=== PATIENT | male | born 1935 | race Caucasian/White ===

== ENCOUNTER 2017-06-28 21:22 | Inpatient (IN) | payer MEDICARE ==
[2017-06-28 21:29] VITALS: BMI 25.7
[2017-06-28] MEDS ORDERED: Albuterol HFA 90 mcg/actuation (8 g) IH PRN (21:57)
[2017-06-28] MEDS: Insulin Lispro (humaLOG) 100 Units/ml Inj SC SCH (22:53)
[2017-06-29 06:20] LABS: BASO # 0.1 K/uL (0.0-0.2); BASO % 1.2 % (0.0-2.0); EOS # 0.2 K/uL (0.0-0.7); EOS % 4.8 % (0.0-4.0); HEMOGLOBIN 12.6 g/dL (12.0-18.0); LYMPH # 1.2 K/uL (1.0-4.3); LYMPH % 26.7 % (20.0-40.0); MEAN CELL VOLUME 94.5 fl (80.0-94.0); MEAN CORPUSCULAR HEMOGLOBIN 30.7 pg (27.0-31.0); MEAN CORPUSCULAR HGB CONC 32.5 g/dL (33.0-37.0); MONO # 0.9 K/uL (0.0-0.8); MONO % 20.7 % (0.0-10.0); NEUT # 2.1 K/uL (1.8-7.0); NEUT % 46.6 % (50.0-75.0); PLATELET COUNT 212 K/uL (130-400); RBC 4.11 Mil/uL (4.40-5.90); RED CELL DISTRIBUTION WIDTH 14.5 % (11.5-14.5); WHITE BLOOD COUNT 4.5 K/uL (4.8-10.8)
[2017-06-29 06:33] LABS: ALBUMIN 3.1 g/dL (3.5-5.0); ALT/SGPT 60 U/L (21-72); AST/SGOT 36 U/L (17-59); BLOOD UREA NITROGEN 15 mg/dl (9-20); CALCIUM 8.7 mg/dL (8.4-10.2); GFR AFRICAN-AMERICAN > 60; GFR NON-AFRICAN AMERICAN > 60; HDL CHOLESTEROL 38 MG/DL (30-70)
[2017-06-29 06:37] LABS: ALB/GLOB RATIO 1.1 (1.0-2.1)
[2017-06-29 06:43] LABS: LDL CHOLESTEROL 97 mg/dL (0-129)
[2017-06-29] MEDS: Insulin Lispro (humaLOG) 100 Units/ml Inj SC SCH ×3 (06:50→16:12)
[2017-06-29] MEDS: Fluticasone-Salmeterol 250-50mcg Diskus IH SCH ×2 (08:23→21:47)
--- NOTE | 2017-06-29 12:29 | PSY.TMCNF ---
Nursing - Vital Signs Vital Signs (Last 8 hours): Vital Signs 06/29/17 06/29/17 08:25 10:00 Temperature 98.1 F Pulse Rate 61 61 Respiratory 20 Rate Blood Pressure 111/65 111/65 O2 Sat by Pulse 97 Oximetry Pain: 0 - Medications/Other Issues Comment: to follow as per nutrition protocol - Bladder Management Bladder Pattern: Normal - Bowel Management Bowel Pattern: Normal Nutrition - Current Diet Current Diet/ Supplement/ Feedings: Moderate consistent CHO heart healthy diet - Appetite Percent Meal Consumed: 75-100% - Assessment/Goals/Time Frame Assessment/Goals/Time Frame: to follow as per nutrition protocol - Provider Provider: Elizabeth Diaz RD Case Management - Discharge Plan Discharge Plan: Home with significant other/family Rehabilitation Plan - Treatment Plan Treatment Plan: Physical Therapy, Occupational Therapy, Speech, Dietary, Patient /Family Education - Recommendation Recommendation: Physical Therapy, Occupational Therapy, Speech, Dietary, Patient /Family Education - Discharge Plan Discharge to: Home
[2017-06-29 12:49] LABS: EOSINOPHIL 4 % (0-7); LYMPHOCYTE 26 % (20-50); MONOCYTE 23 % (0-10); NEUTROPHIL 47 % (42-75); PLATELET ESTIMATE NORMAL (NORMAL); TOTAL CELLS COUNTED 100
[2017-06-29 13:01] LABS: OVALOCYTES SLIGHT
--- NOTE | 2017-06-29 13:11 | PCM.OPOC ---
Physiatry Overall Plan of Care - Overall Plan of Care Estimated Length of Stay in Weeks: 2 Rehab Impairment: Mobility, Gait, Cognition, Balance, Coordination Etiologic Diagnosis: Other - Anticipated Interventions Physical Therapy:: Yes Occupational Therapy:: Yes Speech Therapy:: Yes Recreational Therapy:: Yes - Therapy Goals Bed Mobility: Independent Ambulation: Independent Functional Positional Changes:: Independent - Functional Outcomes Functional Outcomes: fair - Discharge Plan Identification of Barriers to Discharge: Home Situation Discharge Destination: Home
--- NOTE | 2017-06-29 13:15 | CP.PCM.CON ---
History of Present Illness - History of Present Illness History of Present Illness: danish is freindly male admitted [facility] with diagnosis of encephalopathy, HTn Dm and copd Review of Systems - EENT Eyes: Blurred Vision, Change in Vision - Musculoskeletal Musculoskeletal: Abnormal Gait, Muscle Weakness - Neurological Neurological: Weakness Past Patient History - Past Medical History & Family History Past Medical History?: Yes - Past Social History Smoking Status: Never Smoked - CARDIAC Hx Hypertension: Yes - PULMONARY Hx Asthma: Yes - NEUROLOGICAL Other/Comment: 06/19/17: Encephalopathy due to hypertensive crisis - HEENT Hx HEENT Problems: Yes (Left eye diminished vision) - ENDOCRINE/METABOLIC Hx Diabetes Mellitus Type 2: Yes - HEMATOLOGICAL/ONCOLOGICAL Hx AIDS: No Hx Human Immunodeficiency Virus (HIV): No - MUSCULOSKELETAL/RHEUMATOLOGICAL Hx Falls: Yes - GENITOURINARY/GYNECOLOGICAL Hx Prostate Problems: Yes (Enlarged prostate) Hx Urinary Tract Infection: Yes - PSYCHIATRIC Hx Substance Use: No - SURGICAL HISTORY Other/Comment: - Surgery to the left hand & middle finger "years" ago - ANESTHESIA Hx Anesthesia: Yes Hx Anesthesia Reactions: No Has any member of the family had a problem w/ anesthesia?: No Meds Allergies/Adverse Reactions: Allergies Allergy/AdvReac Type Severity Reaction Status Date / Time Penicillins Allergy Mild RASH Verified 06/28/17 22:49 - Medications Medications: Current Medications Albuterol (Ventolin Hfa 90 Mcg/Actuation (8 G)) 1 puff IH Q4H PRN PRN Reason: Wheezing Amlodipine Besylate (Norvasc) 10 mg PO DAILY [facility] Last Admin: 06/29/17 08:25 Dose: 10 mg Aspirin (Aspirin Chewable) 81 mg PO DAILY [facility] Last Admin: 06/29/17 08:23 Dose: 81 mg Atorvastatin Calcium (Lipitor) 80 mg PO HS [facility] Last Admin: 06/28/17 22:54 Dose: 80 mg Finasteride (Proscar) 5 mg PO HS [facility] Insulin Human Lispro (Humalog) 0 units SC [facility] PRN Reason: Protocol Last Admin: 06/29/17 11:52 Dose: Not Given Levofloxacin (Levaquin) 750 mg PO DAILY [facility] Last Admin: 06/29/17 08:24 Dose: 750 mg Fluticasone/Salmeterol (Advair Diskus 250/50) 1 puff IH Q12H [facility] Last Admin: 06/29/17 08:23 Dose: 1 puff Tamsulosin HCl (Flomax) 0.4 mg PO HS [facility] Last Admin: 06/29/17 08:24 Dose: Not Given Physical Exam - Head Exam Head Exam: ATRAUMATIC, NORMAL INSPECTION, NORMOCEPHALIC - Eye Exam Eye Exam: EOMI, Normal appearance, PERRL Pupil Exam: NORMAL ACCOMODATION, PERRL Additional comments: problem with vision - ENT Exam ENT Exam: Mucous Membranes Moist, Normal Exam - Neck Exam Neck exam: Positive for: Normal Inspection - Respiratory Exam Respiratory Exam: Clear to Auscultation Bilateral - GI/Abdominal Exam GI & Abdominal Exam: Normal Bowel Sounds - Rectal Exam Rectal Exam: NORMAL INSPECTION - Exam External exam: NORMAL EXTERNAL EXAM - Extremities Exam Extremities exam: Positive for: normal inspection - Back Exam Back exam: NORMAL INSPECTION - Neurological Exam Neurological exam: Alert, CN II-XII Intact, Normal Gait - Psychiatric Exam Psychiatric exam: Normal Affect, Normal Mood - Skin Skin Exam: Dry, Intact Results - Vital Signs Recent Vital Signs: Last Vital Signs Temp 98.1 F 06/29/17 10:00 Pulse 61 06/29/17 10:00 Resp 20 06/29/17 10:00 BP 111/65 06/29/17 10:00 Pulse Ox 97 06/29/17 10:00 - Labs Result Diagrams: 06/29/17 05:20 06/29/17 05:20 Labs: Laboratory Results - last 24 hr 06/28/17 06/29/17 06/29/17 21:54 05:20 05:20 WBC 4.5 L RBC 4.11 L Hgb 12.6 Hct 38.8 MCV 94.5 H MCH 30.7 MCHC 32.5 L RDW 14.5 Plt Count 212 MPV 9.0 Neut % (Auto) 46.6 L Lymph % (Auto) 26.7 [place] % (Auto) 20.7 H Eos % (Auto) 4.8 H Baso % (Auto) 1.2 Neut # 2.1 Lymph # 1.2 [place] # 0.9 H Eos # 0.2 Baso # 0.1 Neutrophils % (Manual) 47 Lymphocytes % (Manual) 26 Monocytes % (Manual) 23 H Eosinophils % (Manual) 4 Platelet Estimate Normal Macrocytosis (manual) Slight Ovalocytes Slight Sodium 142 Potassium 4.1 Chloride 106 Carbon Dioxide 29 Anion Gap 11 BUN 15 Creatinine 1.0 Est GFR ( Amer) > 60 Est GFR (Non-Af Amer) > 60 POC Glucose (mg/dL) 116 H Random Glucose 99 Hemoglobin A1c Calcium 8.7 Total Bilirubin 0.4 AST 36 ALT 60 Alkaline Phosphatase 72 Total Protein 5.9 L Albumin 3.1 L Globulin 2.8 Albumin/Globulin Ratio 1.1 Triglycerides 66 Cholesterol 156 LDL Cholesterol Direct 97 HDL Cholesterol 38 TSH 3rd Generation 6.60 H 06/29/17 06/29/17 06/29/17 05:20 06:13 11:45 WBC RBC Hgb Hct MCV MCH MCHC RDW Plt Count MPV Neut % (Auto) Lymph % (Auto) [place] % (Auto) Eos % (Auto) Baso % (Auto) Neut # Lymph # [place] # Eos # Baso # Neutrophils % (Manual) Lymphocytes % (Manual) Monocytes % (Manual) Eosinophils % (Manual) Platelet Estimate Macrocytosis (manual) Ovalocytes Sodium Potassium Chloride Carbon Dioxide Anion Gap BUN Creatinine Est GFR ( Amer) Est GFR (Non-Af Amer) POC Glucose (mg/dL) 102 103 Random Glucose Hemoglobin A1c 6.3 Calcium Total Bilirubin AST ALT Alkaline Phosphatase Total Protein Albumin Globulin Albumin/Globulin Ratio Triglycerides Cholesterol LDL Cholesterol Direct HDL Cholesterol TSH 3rd Generation Assessment & Plan (1) Encephalopathy Assessment and Plan: HTn DM and Copd plan for physical, occupational, speech and rec therapy monitor vision, coordination and strenggth for overlall plan of care Status: Acute
--- NOTE | 2017-06-29 15:43 | CP.PCM.CON ---
History of Present Illness - History of Present Illness History of Present Illness: 81 yr old male with a past medical history of htn, dm, copd, hyperlipidemia and now presenting with difficulty seeing out of his left eye and encephalopathy. He was in [facility] for several weeks, for stroke workup, but it is unclear if he had a stroke. Then, he was brought here for rehab for a presumed stroke secondary to hypertension, and thought to have hypertensive encephalopathy. His symptoms resolved, and he now is complaining of left field cut, appreciable on exam, and blurriness of vision. He denies headache, vomiting , or any other deficit. PMH/PSH: Htn, Dm, COpd, Hyperlipidemia FHSH: , has several children. No tobacco,no etoh. All: nkda. Past Patient History - Past Medical History & Family History Past Medical History?: Yes - Past Social History Smoking Status: Never Smoked - CARDIAC Hx Hypertension: Yes - PULMONARY Hx Asthma: Yes - NEUROLOGICAL Other/Comment: 06/19/17: Encephalopathy due to hypertensive crisis - HEENT Hx HEENT Problems: Yes (Left eye diminished vision) - ENDOCRINE/METABOLIC Hx Diabetes Mellitus Type 2: Yes - HEMATOLOGICAL/ONCOLOGICAL Hx AIDS: No Hx Human Immunodeficiency Virus (HIV): No - MUSCULOSKELETAL/RHEUMATOLOGICAL Hx Falls: Yes - GENITOURINARY/GYNECOLOGICAL Hx Prostate Problems: Yes (Enlarged prostate) Hx Urinary Tract Infection: Yes - PSYCHIATRIC Hx Substance Use: No - SURGICAL HISTORY Other/Comment: - Surgery to the left hand & middle finger "years" ago - ANESTHESIA Hx Anesthesia: Yes Hx Anesthesia Reactions: No Has any member of the family had a problem w/ anesthesia?: No Meds Allergies/Adverse Reactions: Allergies Allergy/AdvReac Type Severity Reaction Status Date / Time Penicillins Allergy Mild RASH Verified 06/28/17 22:49 - Medications Medications: Current Medications Albuterol (Ventolin Hfa 90 Mcg/Actuation (8 G)) 1 puff IH Q4H PRN PRN Reason: Wheezing Amlodipine Besylate (Norvasc) 10 mg PO DAILY [facility] Last Admin: 06/29/17 08:25 Dose: 10 mg Aspirin (Aspirin Chewable) 81 mg PO DAILY [facility] Last Admin: 06/29/17 08:23 Dose: 81 mg Atorvastatin Calcium (Lipitor) 80 mg PO HS [facility] Last Admin: 06/28/17 22:54 Dose: 80 mg Finasteride (Proscar) 5 mg PO [facility] Insulin Human Lispro (Humalog) 0 units SC [facility] PRN Reason: Protocol Last Admin: 06/29/17 11:52 Dose: Not Given Levofloxacin (Levaquin) 750 mg PO DAILY [facility] Last Admin: 06/29/17 08:24 Dose: 750 mg Fluticasone/Salmeterol (Advair Diskus 250/50) 1 puff IH Q12H [facility] Last Admin: 06/29/17 08:23 Dose: 1 puff Tamsulosin HCl (Flomax) 0.4 mg PO HS [facility] Last Admin: 06/29/17 08:24 Dose: Not Given Results - Vital Signs Recent Vital Signs: Last Vital Signs Temp 98.1 F 06/29/17 10:00 Pulse 61 06/29/17 10:00 Resp 20 06/29/17 10:00 BP 111/65 06/29/17 10:00 Pulse Ox 97 06/29/17 10:00 - Labs Result Diagrams: 06/29/17 05:20 06/29/17 05:20 Labs: Laboratory Results - last 24 hr 06/28/17 06/29/17 06/29/17 21:54 05:20 05:20 WBC 4.5 L RBC 4.11 L Hgb 12.6 Hct 38.8 MCV 94.5 H MCH 30.7 MCHC 32.5 L RDW 14.5 Plt Count 212 MPV 9.0 Neut % (Auto) 46.6 L Lymph % (Auto) 26.7 [place] % (Auto) 20.7 H Eos % (Auto) 4.8 H Baso % (Auto) 1.2 Neut # 2.1 Lymph # 1.2 [place] # 0.9 H Eos # 0.2 Baso # 0.1 Neutrophils % (Manual) 47 Lymphocytes % (Manual) 26 Monocytes % (Manual) 23 H Eosinophils % (Manual) 4 Platelet Estimate Normal Macrocytosis (manual) Slight Ovalocytes Slight Sodium 142 Potassium 4.1 Chloride 106 Carbon Dioxide 29 Anion Gap 11 BUN 15 Creatinine 1.0 Est GFR ( Amer) > 60 Est GFR (Non-Af Amer) > 60 POC Glucose (mg/dL) 116 H Random Glucose 99 Hemoglobin A1c Calcium 8.7 Total Bilirubin 0.4 AST 36 ALT 60 Alkaline Phosphatase 72 Total Protein 5.9 L Albumin 3.1 L Globulin 2.8 Albumin/Globulin Ratio 1.1 Triglycerides 66 Cholesterol 156 LDL Cholesterol Direct 97 HDL Cholesterol 38 TSH 3rd Generation 6.60 H 06/29/17 06/29/17 06/29/17 05:20 06:13 11:45 WBC RBC Hgb Hct MCV MCH MCHC RDW Plt Count MPV Neut % (Auto) Lymph % (Auto) [place] % (Auto) Eos % (Auto) Baso % (Auto) Neut # Lymph # [place] # Eos # Baso # Neutrophils % (Manual) Lymphocytes % (Manual) Monocytes % (Manual) Eosinophils % (Manual) Platelet Estimate Macrocytosis (manual) Ovalocytes Sodium Potassium Chloride Carbon Dioxide Anion Gap BUN Creatinine Est GFR ( Amer) Est GFR (Non-Af Amer) POC Glucose (mg/dL) 102 103 Random Glucose Hemoglobin A1c 6.3 Calcium Total Bilirubin AST ALT Alkaline Phosphatase Total Protein Albumin Globulin Albumin/Globulin Ratio Triglycerides Cholesterol LDL Cholesterol Direct HDL Cholesterol TSH 3rd Generation Assessment & Plan - Assessment and Plan (Free Text) Assessment: 81 yr old male with neuro exam showing a left superior quadrantanopia, 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 Plan; 1. Repeat MRI Brain without adonis 2. start aspirin 3. Video EEG normal in the past, but will repeat EEG here.
--- NOTE | 2017-06-30 03:54 | HP ---
HISTORY OF PRESENT ILLNESS: This is a 81-year-old male with history of multiple medical problems, was admitted to acute rehabilitation at [facility] after discharged from [facility]. Patient was admitted due to the hospital for syncope and he had a CVA workup that is not known to us at this point. Patient is complaining of visual field cut on the left side. The patient denied to have any chest pain, shortness of breath and other review of systems is negative.. ALLERGIES: POSITIVE FOR PENICILLIN. PAST MEDICAL HISTORY: COPD, hypertension, type 2 diabetes mellitus, benign prostate hypertrophy. SOCIAL HISTORY: Denied smoking, EtOH or substance abuse. FAMILY HISTORY: Noncontributory. PHYSICAL EXAMINATION: GENERAL: Not in any cardiopulmonary distress. VITAL SIGNS: Blood pressure is 111/65, temperature 98.1, respiratory rate 20 and pulse 61. HEENT: Pupils equal, reactive to light. Normal-appearing mucosa of the conjunctivae, oropharynx and nasal membrane mucosa. NECK: Supple. No JVD. No carotid bruit. No lymph node. No thyromegaly. CHEST AND LUNGS: Bilateral symmetrical expansion. Good air exchange. No rales, no rhonchi. CARDIOVASCULAR SYSTEM: PMI not localized. S1, S2. No additional sounds. ABDOMEN: Normoactive bowel sounds. No tenderness. No organomegaly. No masses. EXTREMITIES: No cyanosis, no clubbing, no edema. CENTRAL NERVOUS SYSTEM: Subtle weakness on the left side with left homonymous quadranopsia. ASSESSMENT: Possible cerebrovascular accident, hypertension, type 2 diabetes mellitus. PLAN: Urology consult and follow recommendations. Continue current medications and physical therapy as per PM&R environmental consultant. Yennifer Swan MD
[2017-06-30] MEDS: Fluticasone-Salmeterol 250-50mcg Diskus IH SCH ×2 (08:27→22:11)
[2017-06-30] MEDS ORDERED: Gadodiamide 287 MG/ML VIAL (15ML) IV ONE (08:41)
--- NOTE | 2017-06-30 11:22 | CP.PCM.PN ---
Subjective - Date & Time of Evaluation Date of Evaluation: 06/30/17 Time of Evaluation: :18 - Subjective Subjective: Mr. Obrien was seen and examined in the therapy room. He is alert, oriented in all spheres. He states of having unequal visual vision. He sees clear in his right eye and blurred vision in his left eye. He states that his sees his shoe size is uneven and his therapist shoulder uneven.He is able to answer questions appropriately and follow simple commands. He is able to participate during his therapy. There was no untoward events overnight. Objective - Vital Signs/Intake and Output Vital Signs (last 24 hours): Temp Pulse Resp BP Pulse Ox 98.2 F 71 20 111/64 99 06/30/17 08:29 06/30/17 08:29 06/30/17 08:29 06/30/17 08:29 06/30/17 08:29 - Medications Medications: Current Medications Albuterol (Ventolin Hfa 90 Mcg/Actuation (8 G)) 1 puff IH Q4H PRN PRN Reason: Wheezing Last Admin: 06/29/17 14:51 Dose: 1 puff Amlodipine Besylate (Norvasc) 10 mg PO DAILY [facility] Last Admin: 06/30/17 08:29 Dose: Not Given Aspirin (Aspirin Chewable) 81 mg PO DAILY [facility] Last Admin: 06/30/17 08:28 Dose: 81 mg Atorvastatin Calcium (Lipitor) 80 mg PO [facility] Last Admin: 06/29/17 21:48 Dose: 80 mg Famotidine (Pepcid) 20 mg PO BID [facility] Last Admin: 06/30/17 08:29 Dose: 20 mg Finasteride (Proscar) 5 mg PO [facility] Last Admin: 06/29/17 21:49 Dose: 5 mg Levofloxacin (Levaquin) 750 mg PO DAILY [facility] Last Admin: 06/29/17 08:24 Dose: 750 mg Fluticasone/Salmeterol (Advair Diskus 250/50) 1 puff IH Q12H [facility] Last Admin: 06/30/17 08:27 Dose: 1 puff Tamsulosin HCl (Flomax) 0.4 mg PO [facility] Last Admin: 06/29/17 21:48 Dose: 0.4 mg - Labs Labs: 06/29/17 05:20 06/29/17 05:20 - Constitutional Appears: No Acute Distress - Head Exam Head Exam: NORMAL INSPECTION - Neurological Exam Neurological Exam: Alert, Awake, Oriented x3 Neuro motor strength exam: Left Upper Extremity: 5, Right Upper Extremity: 5, Left Lower Extremity: 5, Right Lower Extremity: 5 Additional comments: He is able to answer questions approrpiately and follow simple commands. Sensation remains intact. Assessment and Plan (1) Encephalopathy Assessment & Plan: Case discussed Dr. Ernst, continue all current medical, physical, occupational, and speech therapies. Pending MRI of the brain results. Recommend EEG. Status: Acute
--- NOTE | 2017-06-30 12:02 | MRI ---
PROCEDURE: MRI BRAIN WITH AND WITHOUT CONTRAST HISTORY: acute cva f/u COMPARISON: None. TECHNIQUE: Multiplanar, multisequence MR images of the brain were obtained with and without intravenous contrast (Omniscan, 17 cc) enhancement. FINDINGS: HEMORRHAGE: None DWI: No evidence of an acute or early subacute infarction. BRAIN PARENCHYMA: Calcifications felt to present the anterior falx which is mildly thickened. Good corticomedullary differentiation is seen. Diffuse expansion of the ventriculosulcal and cisternal spaces is appreciated with white matter signal changes compatible with diffuse cerebral atrophy and chronic microangiopathy. No suspicious extra-axial fluid collection is identified and the midline brain anatomy appears grossly nonfocal as imaged. There is no mass effect throughout. ENHANCEMENT: No abnormal intracranial enhancement. VENTRICLES: Unremarkable. No hydrocephalus. CRANIUM: Unremarkable. ORBITS: Grossly unremarkable. PARANASAL SINUSES/MASTOIDS: Right ethmoid sinusitis affects posterior right ethmoid air cells with remainder widely aerated unremarkable otherwise. VASCULAR SYSTEM: Skull base flow voids intact. OTHER FINDINGS: None . IMPRESSION: No evidence of an acute separate brain infarction at this time. Mild age-related neuro degenerative change are identified and appear age-appropriate. Thickening of the falx is appreciated pattern suggesting likely mildly prominent calcification. This can be confirmed by follow-up CT with hemorrhage not favored.
--- NOTE | 2017-07-01 02:11 | PN ---
DATE: 06/30/2017 SUBJECTIVE: The patient is seen today 06/30/2017. He is not in any cardiopulmonary distress. The patient is cooperative to physical therapy and occupational therapy. PHYSICAL EXAMINATION: VITAL SIGNS: Blood pressure 114/66, temperature 98.1, respiratory rate 20 and pulse 64. HEENT: Pupils equal, reactive to light. Normal-appearing mucosa of the conjunctivae, oropharyngeal and nasal membrane mucosa. NECK: Supple. No JVD. No carotid bruit. No lymph node. No thyromegaly. CHEST AND LUNGS: Bilateral symmetrical expansion. Good air exchange. No rales, no rhonchi. CARDIOVASCULAR SYSTEM: PMI not localized. S1, S2. No additional sounds. ABDOMEN: Normoactive bowel sounds. No tenderness. No organomegaly. No masses. EXTREMITIES: No cyanosis, no clubbing, no edema. CENTRAL NERVOUS SYSTEM: Alert, awake, oriented times x2 and the patient has left homonymous quadrantanopia. ASSESSMENT : Acute rehabilitation for the patient, who has history of syncope with change in mental status, diagnosed with metabolic encephalopathy and currently has left-sided visual cut. MRI of the brain was done today and it showed no evidence of acute separate brain infarction, mild age-related neurodegenerative changes are identified and appear age appropriate, thickening of the falx is appreciated, pattern suggesting likely mildly prominent calcification. This can be . PLAN: Continue physical therapy and occupational therapy. Discussed the patient's condition with his physician who looks after him at [facility], Dr. Mckeon. Yennifer Swan MD
--- NOTE | 2017-07-01 08:15 | CP.PCM.CON ---
History of Present Illness - History of Present Illness History of Present Illness: 81 y/o male with PMHx of COPD, DM II, HTN and BPH seen at bedside by podiatry after consultation for painful elongated toenails x10. Pt says he is unable to cut them himself. 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 Denies numbness or tingling in the feet. Denies F/C/N/V/CP/SOB All: PCN Social: denies FamHx: denies PSH: denies Review of Systems - Review of Systems All systems: reviewed and no additional remarkable complaints except (per HPI) Past Patient History - Past Medical History & Family History Past Medical History?: Yes - Past Social History Smoking Status: Never Smoked - CARDIAC Hx Hypertension: Yes - PULMONARY Hx Chronic Obstructive Pulmonary Disease (COPD): Yes - NEUROLOGICAL Other/Comment: 06/19/17: Encephalopathy due to hypertensive crisis - HEENT Hx HEENT Problems: Yes (Left eye diminished vision) - ENDOCRINE/METABOLIC Hx Diabetes Mellitus Type 2: Yes - HEMATOLOGICAL/ONCOLOGICAL Hx AIDS: No Hx Human Immunodeficiency Virus (HIV): No - MUSCULOSKELETAL/RHEUMATOLOGICAL Hx Falls: Yes - GENITOURINARY/GYNECOLOGICAL Hx Prostate Problems: Yes (Enlarged prostate) Hx Urinary Tract Infection: Yes - PSYCHIATRIC Hx Substance Use: No - SURGICAL HISTORY Other/Comment: - Surgery to the left hand & middle finger "years" ago - ANESTHESIA Hx Anesthesia: Yes Hx Anesthesia Reactions: No Has any member of the family had a problem w/ anesthesia?: No Meds Allergies/Adverse Reactions: Allergies Allergy/AdvReac Type Severity Reaction Status Date / Time Penicillins Allergy Mild RASH Verified 06/28/17 22:49 - Medications Medications: Current Medications Albuterol (Ventolin Hfa 90 Mcg/Actuation (8 G)) 1 puff IH Q4H PRN PRN Reason: Wheezing Last Admin: 06/29/17 14:51 Dose: 1 puff Amlodipine Besylate (Norvasc) 10 mg PO DAILY [facility] Last Admin: 06/30/17 08:29 Dose: Not Given Aspirin (Aspirin Chewable) 81 mg PO DAILY [facility] Last Admin: 06/30/17 08:28 Dose: 81 mg Atorvastatin Calcium (Lipitor) 80 mg PO HS [facility] Last Admin: 06/30/17 22:12 Dose: 80 mg Famotidine (Pepcid) 20 mg PO BID [facility] Last Admin: 06/30/17 17:21 Dose: 20 mg Finasteride (Proscar) 5 mg PO [facility] Last Admin: 06/30/17 22:12 Dose: 5 mg Levofloxacin (Levaquin) 750 mg PO DAILY [facility] Fluticasone/Salmeterol (Advair Diskus 250/50) 1 puff IH Q12H [facility] Last Admin: 06/30/17 22:11 Dose: 1 puff Tamsulosin HCl (Flomax) 0.4 mg PO [facility] Last Admin: 06/30/17 22:12 Dose: 0.4 mg Physical Exam - Constitutional Appears: Well, Non-toxic, No Acute Distress - Extremities Exam Additional comments: Vasc: DP/PT pulses palpable 2/4 B/L. Temperature gradient warm to cool B/L. CFT < 3 sec to all digits. No pedal edema noted. Neuro: Protective sensation grossly intact B/L Derm: Elongated dystrophic toenails x 10. No open lesions, no erythema, no ecchymosis, skin well hydrated Ortho: Tenderness to palpation of toenails x 10 - Neurological Exam Neurological exam: Alert - Psychiatric Exam Psychiatric exam: Normal Affect, Normal Mood Results - Vital Signs Recent Vital Signs: Last Vital Signs Temp 98.4 F 07/01/17 07:47 Pulse 78 07/01/17 07:47 Resp 20 07/01/17 07:47 BP 119/64 07/01/17 07:47 Pulse Ox 100 07/01/17 07:47 - Labs Result Diagrams: 06/29/17 05:20 06/29/17 05:20 Labs: Laboratory Results - last 24 hr 06/30/17 11:20 POC Glucose (mg/dL) 111 H Assessment & Plan - Assessment and Plan (Free Text) Assessment: 81 y/o male with elongated painful dystrophic toenails x 10 Plan: Pt seen and evaluated at bedside Discussed with attending Dr. Madden Aseptic debridement of toenails x 10 with sterile nippers Pt tolerated procedure without incident Cleansed with alcohol pads Podiatry to sign off at this time Thank you for this consult
[2017-07-01] MEDS: Fluticasone-Salmeterol 250-50mcg Diskus IH SCH ×2 (09:11→20:26)
[2017-07-01] MEDS: levoFLOXacin 750 MG TAB PO SCH (09:12)
--- NOTE | 2017-07-01 12:56 | CP.PCM.PN ---
Subjective - Date & Time of Evaluation Date of Evaluation: 07/01/17 Time of Evaluation: 10:30 - Subjective Subjective: no acute complaints wanted his inhalers Objective - Vital Signs/Intake and Output Vital Signs (last 24 hours): Temp Pulse Resp BP Pulse Ox 98.4 F 78 20 119/64 100 07/01/17 07:47 07/01/17 09:12 07/01/17 07:47 07/01/17 09:12 07/01/17 07:47 - Medications Medications: Current Medications Albuterol (Ventolin Hfa 90 Mcg/Actuation (8 G)) 1 puff IH Q4H PRN PRN Reason: Wheezing Last Admin: 06/29/17 14:51 Dose: 1 puff Amlodipine Besylate (Norvasc) 10 mg PO DAILY [facility] Last Admin: 07/01/17 09:12 Dose: 10 mg Aspirin (Aspirin Chewable) 81 mg PO DAILY [facility] Last Admin: 07/01/17 09:12 Dose: 81 mg Atorvastatin Calcium (Lipitor) 80 mg PO [facility] Last Admin: 06/30/17 22:12 Dose: 80 mg Famotidine (Pepcid) 20 mg PO BID [facility] Last Admin: 07/01/17 09:12 Dose: 20 mg Finasteride (Proscar) 5 mg PO [facility] Last Admin: 06/30/17 22:12 Dose: 5 mg Levofloxacin (Levaquin) 750 mg PO DAILY [facility] Last Admin: 07/01/17 09:12 Dose: 750 mg Fluticasone/Salmeterol (Advair Diskus 250/50) 1 puff IH Q12H [facility] Last Admin: 07/01/17 09:11 Dose: 1 puff Tamsulosin HCl (Flomax) 0.4 mg PO [facility] Last Admin: 06/30/17 22:12 Dose: 0.4 mg - Labs Labs: 06/29/17 05:20 06/29/17 05:20 - Head Exam Head Exam: ATRAUMATIC, NORMAL INSPECTION, NORMOCEPHALIC - Eye Exam Eye Exam: EOMI, Normal appearance, PERRL Pupil Exam: NORMAL ACCOMODATION - ENT Exam ENT Exam: Mucous Membranes Moist, Normal Exam - Neck Exam Neck Exam: Normal Inspection - Cardiovascular Exam Cardiovascular Exam: REGULAR RHYTHM - GI/Abdominal Exam GI & Abdominal Exam: Soft, Normal Bowel Sounds - Rectal Exam Rectal Exam: NORMAL INSPECTION - Exam Speculum exam: NORMAL SPECULUM EXAM - Extremities Exam Extremities Exam: Full ROM, Normal Capillary Refill - Back Exam Back Exam: NORMAL INSPECTION - Neurological Exam Neurological Exam: Alert, Awake Neuro motor strength exam: Left Upper Extremity: 3, Right Upper Extremity: 3, Left Lower Extremity: 3, Right Lower Extremity: 3 - Psychiatric Exam Psychiatric exam: Normal Affect, Normal Mood - Skin Skin Exam: Dry, Intact Assessment and Plan (1) Encephalopathy Assessment & Plan: plan for physical, occupational, rec therapy status post neurology eval Status: Acute
--- NOTE | 2017-07-01 13:00 | CP.PCM.PN ---
Subjective - Date & Time of Evaluation Date of Evaluation: 07/01/17 Time of Evaluation: 12:55 - Subjective Subjective: Mr. Obrien was seen and examined at the bedside. He is alert, oriented in all spheres. He denies any headache, dizziness,lightheadedness, nausea, or vomiting. He claims of uneveness of his vision. The right eye is clearer than the left and he sees object in segment. The MRI of the brain showed no evidence of acute separate brain infarction. Mild age-related neuro degenerative change are identified and appear age appropriate. Thickening of the falx is appreciated pattern suggesting likely mild prominent calcification. EEG is normal. There was no untoward events overnight. Objective - Vital Signs/Intake and Output Vital Signs (last 24 hours): Temp Pulse Resp BP Pulse Ox 98.4 F 78 20 119/64 100 07/01/17 07:47 07/01/17 09:12 07/01/17 07:47 07/01/17 09:12 07/01/17 07:47 - Medications Medications: Current Medications Albuterol (Ventolin Hfa 90 Mcg/Actuation (8 G)) 1 puff IH Q4H PRN PRN Reason: Wheezing Last Admin: 06/29/17 14:51 Dose: 1 puff Amlodipine Besylate (Norvasc) 10 mg PO DAILY [facility] Last Admin: 07/01/17 09:12 Dose: 10 mg Aspirin (Aspirin Chewable) 81 mg PO DAILY [facility] Last Admin: 07/01/17 09:12 Dose: 81 mg Atorvastatin Calcium (Lipitor) 80 mg PO HS [facility] Last Admin: 06/30/17 22:12 Dose: 80 mg Famotidine (Pepcid) 20 mg PO BID [facility] Last Admin: 07/01/17 09:12 Dose: 20 mg Finasteride (Proscar) 5 mg PO HS [facility] Last Admin: 06/30/17 22:12 Dose: 5 mg Levofloxacin (Levaquin) 750 mg PO DAILY [facility] Last Admin: 07/01/17 09:12 Dose: 750 mg Fluticasone/Salmeterol (Advair Diskus 250/50) 1 puff IH Q12H [facility] Last Admin: 07/01/17 09:11 Dose: 1 puff Tamsulosin HCl (Flomax) 0.4 mg PO [facility] Last Admin: 01/11/18 22:12 Dose: 0.4 mg - Labs Labs: 06/29/17 05:20 06/29/17 05:20 - Constitutional Appears: No Acute Distress - Head Exam Head Exam: NORMAL INSPECTION - Eye Exam Pupil Exam: PERRL Additional comments: unequal clarity of vision. - Neurological Exam Neurological Exam: Alert, Awake, Oriented x3 Neuro motor strength exam: Left Upper Extremity: 4, Right Upper Extremity: 4, Left Lower Extremity: 4, Right Lower Extremity: 4 Additional comments: Neurological unchanged from previous examination. Assessment and Plan (1) Encephalopathy Assessment & Plan: Case discussed with Dr. Ernst, continue all current medical, physical, occupational therapies. Recommend opthalmology consult. Status: Acute
[2017-07-02] MEDS: Fluticasone-Salmeterol 250-50mcg Diskus IH SCH ×2 (08:35→21:14)
[2017-07-02] MEDS: levoFLOXacin 750 MG TAB PO SCH (08:36)
--- NOTE | 2017-07-03 04:48 | PN ---
DATE: 07/02/2017 SUBJECTIVE: Patient is seen today 07/02/2017. OBJECTIVE: GENERAL: He is not in any cardiopulmonary distress. VITAL SIGNS: Blood pressure is 125/66, temperature 98, respiratory rate 20 and pulse 72. HEENT: Pupils equal, reactive to light. Normal-appearing mucosa of the conjunctivae, oropharynx and nasal membrane mucosa. NECK: Supple. No JVD. No carotid bruit. No lymph node. No thyromegaly. CHEST AND LUNGS: Bilateral symmetrical expansion. Good air exchange. No rales, no rhonchi. CARDIOVASCULAR: PMI not localized. S1, S2. No additional sounds. ABDOMEN: Normoactive bowel sounds. No tenderness. No organomegaly. No masses. EXTREMITIES: No cyanosis, no clubbing, no edema. CENTRAL NERVOUS SYSTEM: Alert, awake, oriented x3. No neurological deficit could be appreciated except for left visual field cut. ASSESSMENT: 1. Status post syncope/metabolic encephalopathy, likely due to urinary tract infection with sepsis. 2. Type 2 diabetes mellitus. 3. Hypertension. PLAN: Continue current medications and continue physical therapy and occupational therapy. Yennifer Swan MD
[2017-07-03] MEDS: Fluticasone-Salmeterol 250-50mcg Diskus IH SCH ×2 (08:19→21:46)
[2017-07-03] MEDS: levoFLOXacin 750 MG TAB PO SCH (08:19)
[2017-07-04] MEDS: Fluticasone-Salmeterol 250-50mcg Diskus IH SCH ×2 (08:29→21:35)
[2017-07-04] MEDS: levoFLOXacin 750 MG TAB PO SCH (08:30)
--- NOTE | 2017-07-04 11:04 | CP.PCM.PN ---
Subjective - Date & Time of Evaluation Date of Evaluation: 07/04/17 Time of Evaluation: 11:01 - Subjective Subjective: Mr. Obrien was seen and examined at the bedside. He is alert, oriented in all spheres. He denies any headache, dizziness, lightheadedness, nausea, or vomiting. He still states of his divided vision of the left eye. Opthalmology was called with suggestion to follow up as an outpatient . He is able to follow simple commands. There was no untoward events overnight. Objective - Vital Signs/Intake and Output Vital Signs (last 24 hours): Temp Pulse Resp BP Pulse Ox 97.9 F 62 20 131/83 98 07/04/17 08:09 07/04/17 08:30 07/04/17 08:09 07/04/17 08:30 07/04/17 08:09 - Medications Medications: Current Medications Albuterol (Ventolin Hfa 90 Mcg/Actuation (8 G)) 1 puff IH Q4H PRN PRN Reason: Wheezing Last Admin: 06/29/17 14:51 Dose: 1 puff Amlodipine Besylate (Norvasc) 10 mg PO DAILY [facility] Last Admin: 07/04/17 08:30 Dose: 10 mg Aspirin (Aspirin Chewable) 81 mg PO DAILY [facility] Last Admin: 07/04/17 08:30 Dose: 81 mg Atorvastatin Calcium (Lipitor) 80 mg PO [facility] Last Admin: 07/03/17 21:46 Dose: 80 mg Famotidine (Pepcid) 20 mg PO BID [facility] Last Admin: 07/04/17 08:30 Dose: 20 mg Finasteride (Proscar) 5 mg PO [facility] Last Admin: 07/03/17 21:47 Dose: 5 mg Levofloxacin (Levaquin) 750 mg PO DAILY [facility] Last Admin: 07/04/17 08:30 Dose: 750 mg Fluticasone/Salmeterol (Advair Diskus 250/50) 1 puff IH Q12H [facility] Last Admin: 07/04/17 08:29 Dose: 1 puff Tamsulosin HCl (Flomax) 0.4 mg PO [facility] Last Admin: 07/03/17 21:47 Dose: 0.4 mg - Labs Labs: 06/29/17 05:20 06/29/17 05:20 - Constitutional Appears: No Acute Distress - Head Exam Head Exam: NORMAL INSPECTION - Neurological Exam Neurological Exam: Alert, Awake, Oriented x3 Neuro motor strength exam: Left Upper Extremity: 5, Right Upper Extremity: 5, Left Lower Extremity: 5, Right Lower Extremity: 5 Additional comments: Neurological unchanged from previous examination. Assessment and Plan (1) Encephalopathy Assessment & Plan: Case discussed with Dr. Ernst, continue all current medical, physical, and occupational therapies. There is no new recommendation from neurology. Status: Acute
--- NOTE | 2017-07-05 01:14 | PN ---
DATE: 07/04/2017 DAILY PROGRESS NOTE SUBJECTIVE: Patient is seen today, 07/04/2017. He is not in any cardiopulmonary distress. PHYSICAL EXAMINATION: VITAL SIGNS: Blood pressure 129/80, temperature 98.2, respiratory rate 20 and pulse 64. HEENT: Pupils equal, reactive to light. Normal-appearing mucosa of the conjunctivae, oropharyngeal and nasal membrane mucosa. NECK: Supple. No JVD. No carotid bruit. No lymph node. No thyromegaly. CHEST AND LUNGS: Bilateral symmetrical expansion. Good air exchange. No rales. No rhonchi. CARDIOVASCULAR SYSTEM: PMI not localized. S1, S2. No additional sounds. ABDOMEN: Normoactive bowel sounds. No tenderness. No organomegaly. No masses. EXTREMITIES: No cyanosis, no clubbing, no edema. CENTRAL NERVOUS SYSTEM: Alert, awake, oriented x3. No neurological deficits could be appreciated. ASSESSMENT: 1. Status post syncope with metabolic encephalopathy, likely related to urinary tract infection. 2. Hypertension. 3. Type 2 diabetes mellitus. PLAN: Continue current medications and physical therapy and occupational therapy. Yennifer Swan MD
[2017-07-05] MEDS: Fluticasone-Salmeterol 250-50mcg Diskus IH SCH ×2 (08:28→21:11)
[2017-07-05] MEDS: levoFLOXacin 750 MG TAB PO SCH (08:29)
--- NOTE | 2017-07-05 15:00 | CP.PCM.PN ---
Subjective - Date & Time of Evaluation Date of Evaluation: 07/02/17 Time of Evaluation: 16:20 - Subjective Subjective: NO ACUTE COMPLAINTS AT PRESENT Objective - Vital Signs/Intake and Output Vital Signs (last 24 hours): Temp Pulse Resp BP Pulse Ox 98.2 F 84 20 99/60 L 100 07/05/17 09:25 07/05/17 09:25 07/05/17 09:25 07/05/17 09:25 07/05/17 09:25 - Medications Medications: Current Medications Albuterol (Ventolin Hfa 90 Mcg/Actuation (8 G)) 1 puff IH Q4H PRN PRN Reason: Wheezing Last Admin: 06/29/17 14:51 Dose: 1 puff Amlodipine Besylate (Norvasc) 10 mg PO DAILY [facility] Last Admin: 07/05/17 08:29 Dose: Not Given Aspirin (Aspirin Chewable) 81 mg PO DAILY [facility] Last Admin: 07/05/17 08:29 Dose: 81 mg Atorvastatin Calcium (Lipitor) 80 mg PO [facility] Last Admin: 07/04/17 21:36 Dose: 80 mg Famotidine (Pepcid) 20 mg PO BID [facility] Last Admin: 07/05/17 08:29 Dose: 20 mg Finasteride (Proscar) 5 mg PO [facility] Last Admin: 07/04/17 21:37 Dose: 5 mg Levofloxacin (Levaquin) 750 mg PO DAILY [facility] Last Admin: 07/05/17 08:29 Dose: 750 mg Fluticasone/Salmeterol (Advair Diskus 250/50) 1 puff IH Q12H [facility] Last Admin: 07/05/17 08:28 Dose: 1 puff Tamsulosin HCl (Flomax) 0.4 mg PO [facility] Last Admin: 07/04/17 21:36 Dose: 0.4 mg - Labs Labs: 06/29/17 05:20 06/29/17 05:20 - Head Exam Head Exam: ATRAUMATIC, NORMAL INSPECTION, NORMOCEPHALIC - Eye Exam Eye Exam: EOMI, Normal appearance, PERRL Pupil Exam: NORMAL ACCOMODATION - ENT Exam ENT Exam: Mucous Membranes Moist, Normal Exam - Neck Exam Neck Exam: Normal Inspection - Respiratory Exam Respiratory Exam: Clear to Ausculation Bilateral, NORMAL BREATHING PATTERN - Cardiovascular Exam Cardiovascular Exam: REGULAR RHYTHM - GI/Abdominal Exam GI & Abdominal Exam: Soft, Normal Bowel Sounds - Rectal Exam Rectal Exam: NORMAL INSPECTION - Exam External exam: NORMAL EXTERNAL EXAM - Extremities Exam Extremities Exam: Full ROM, Normal Capillary Refill - Back Exam Back Exam: NORMAL INSPECTION - Neurological Exam Neurological Exam: Alert, Awake Neuro motor strength exam: Left Upper Extremity: 3, Right Upper Extremity: 3, Left Lower Extremity: 3, Right Lower Extremity: 3 - Psychiatric Exam Psychiatric exam: Normal Affect, Normal Mood - Skin Skin Exam: Dry, Intact Assessment and Plan (1) Encephalopathy Assessment & Plan: PLAN FOR PHYSICAL, OCCUPATIONAL, REC THERAPY Status: Acute
--- NOTE | 2017-07-05 15:02 | CP.PCM.PN ---
Subjective - Date & Time of Evaluation Date of Evaluation: 07/05/17 Time of Evaluation: 13:00 - Subjective Subjective: NO COMPLAINTS OF NECK OR BACK PAIN Objective - Vital Signs/Intake and Output Vital Signs (last 24 hours): Temp Pulse Resp BP Pulse Ox 98.2 F 84 20 99/60 L 100 07/05/17 09:25 07/05/17 09:25 07/05/17 09:25 07/05/17 09:25 07/05/17 09:25 - Medications Medications: Current Medications Albuterol (Ventolin Hfa 90 Mcg/Actuation (8 G)) 1 puff IH Q4H PRN PRN Reason: Wheezing Last Admin: 06/29/17 14:51 Dose: 1 puff Amlodipine Besylate (Norvasc) 10 mg PO DAILY [facility] Last Admin: 07/05/17 08:29 Dose: Not Given Aspirin (Aspirin Chewable) 81 mg PO DAILY [facility] Last Admin: 07/05/17 08:29 Dose: 81 mg Atorvastatin Calcium (Lipitor) 80 mg PO [facility] Last Admin: 07/04/17 21:36 Dose: 80 mg Famotidine (Pepcid) 20 mg PO BID [facility] Last Admin: 07/05/17 08:29 Dose: 20 mg Finasteride (Proscar) 5 mg PO [facility] Last Admin: 07/04/17 21:37 Dose: 5 mg Levofloxacin (Levaquin) 750 mg PO DAILY [facility] Last Admin: 07/05/17 08:29 Dose: 750 mg Fluticasone/Salmeterol (Advair Diskus 250/50) 1 puff IH Q12H [facility] Last Admin: 07/05/17 08:28 Dose: 1 puff Tamsulosin HCl (Flomax) 0.4 mg PO [facility] Last Admin: 07/04/17 21:36 Dose: 0.4 mg - Labs Labs: 06/29/17 05:20 06/29/17 05:20 - Head Exam Head Exam: ATRAUMATIC, NORMAL INSPECTION, NORMOCEPHALIC - Eye Exam Eye Exam: EOMI, Normal appearance, PERRL Pupil Exam: NORMAL ACCOMODATION - ENT Exam ENT Exam: Mucous Membranes Moist, Normal Exam - Neck Exam Neck Exam: Full ROM, Normal Inspection - Respiratory Exam Respiratory Exam: NORMAL BREATHING PATTERN - Cardiovascular Exam Cardiovascular Exam: REGULAR RHYTHM - GI/Abdominal Exam GI & Abdominal Exam: Normal Bowel Sounds - Rectal Exam Rectal Exam: NORMAL INSPECTION - Exam External exam: NORMAL EXTERNAL EXAM - Extremities Exam Extremities Exam: Full ROM, Normal Capillary Refill - Back Exam Back Exam: NORMAL INSPECTION - Neurological Exam Neurological Exam: Alert, Awake Neuro motor strength exam: Left Upper Extremity: 3, Right Upper Extremity: 3, Left Lower Extremity: 3, Right Lower Extremity: 3 - Psychiatric Exam Psychiatric exam: Normal Affect, Normal Mood - Skin Skin Exam: Dry, Intact Assessment and Plan (1) Encephalopathy Assessment & Plan: PLAN FOR dC 07/08 FOR TEAM CONFERENCE AND dC PLANNING, PT OT THERAPY Status: Acute
[2017-07-06] MEDS: Fluticasone-Salmeterol 250-50mcg Diskus IH SCH ×2 (09:11→20:38)
[2017-07-06] MEDS: levoFLOXacin 750 MG TAB PO SCH (09:11)
--- NOTE | 2017-07-06 10:43 | CP.PCM.PN ---
Subjective - Date & Time of Evaluation Date of Evaluation: 07/06/17 Time of Evaluation: 10:41 - Subjective Subjective: Mr. Obrien was seen and examined at the bedside. He is alert, oriented in all spheres. He denies any headache, dizziness. numbness, nausea, or vomiting. He is able to participate in all his therapies. There was no untoward events overnight. Objective - Vital Signs/Intake and Output Vital Signs (last 24 hours): Temp Pulse Resp BP Pulse Ox 97.6 F 73 20 116/66 98 07/06/17 10:00 07/06/17 10:00 07/06/17 10:00 07/06/17 10:00 07/06/17 10:00 - Medications Medications: Current Medications Albuterol (Ventolin Hfa 90 Mcg/Actuation (8 G)) 1 puff IH Q4H PRN PRN Reason: Wheezing Last Admin: 06/29/17 14:51 Dose: 1 puff Amlodipine Besylate (Norvasc) 10 mg PO DAILY [facility] Last Admin: 07/06/17 09:12 Dose: Not Given Aspirin (Aspirin Chewable) 81 mg PO DAILY [facility] Last Admin: 07/06/17 09:11 Dose: 81 mg Atorvastatin Calcium (Lipitor) 80 mg PO HS [facility] Last Admin: 07/05/17 21:11 Dose: 80 mg Famotidine (Pepcid) 20 mg PO BID [facility] Last Admin: 07/06/17 09:11 Dose: 20 mg Finasteride (Proscar) 5 mg PO [facility] Last Admin: 07/05/17 21:11 Dose: 5 mg Levofloxacin (Levaquin) 750 mg PO DAILY [facility] Last Admin: 07/06/17 09:11 Dose: 750 mg Fluticasone/Salmeterol (Advair Diskus 250/50) 1 puff IH Q12H [facility] Last Admin: 07/06/17 09:11 Dose: 1 puff Tamsulosin HCl (Flomax) 0.4 mg PO [facility] Last Admin: 07/05/17 21:11 Dose: 0.4 mg - Labs Labs: 06/29/17 05:20 06/29/17 05:20 - Constitutional Appears: No Acute Distress - Head Exam Head Exam: NORMAL INSPECTION - Neurological Exam Neurological Exam: Alert, Awake, Oriented x3 Neuro motor strength exam: Left Upper Extremity: 5, Right Upper Extremity: 5, Left Lower Extremity: 5, Right Lower Extremity: 5 Additional comments: Neurological unchanged from previous examination. Assessment and Plan (1) Encephalopathy Assessment & Plan: Case discussed with Dr. Ernst, continue all current medical, physical, occupational therapies. There is no new recommendations from neurology. Status: Acute
--- NOTE | 2017-07-06 12:16 | PSY.TMCNF ---
Nursing - Vital Signs Vital Signs (Last 8 hours): Vital Signs 07/06/17 07/06/17 09:12 10:00 Temperature 97.6 F Pulse Rate 73 73 Respiratory 20 Rate Blood Pressure 116/66 116/66 O2 Sat by Pulse 98 Oximetry Pain: 0 - Precautions: Precautions: Fall Prevention - Medications/Other Issues Comment: Pt at moderate nutritional risk. goal:1. Pt will be able to describe 3 sources of high sodium foods. Follow-up due on 07/06/2017 - Consults Comment: Dr. Ernst, Dr. Madden and Dr. Slade - Bladder Management Bladder Pattern: Normal Voiding Method: Toilet - Bowel Management Bowel Pattern: Normal Bowel Management: Contact Guard - Transfers Transfers: Contact Guard - ADL's ADL's: Contact Guard - Pain Management Comments: Denies pain - Patient/Family Teaching Comments: Safety - Goals/Time Frame Comments: Pt was seen awake and alert sitting in his wheelchair in his room. Pt was eating dinner prior to visit. Pt agreeable to visit and was able to identify his leisure interests. Pt reported that at home hes takes care of the house, repairs anything that is broken, cooks, and cleans. Pt reported that he has decrease vision in the L eye. Pt reported no other weakness in UE and LE. Pt continued to eat dinner following visit. Physical Therapy - Bed Mobility Bed Mobility: Modified Independent - Transfers Wheelchair to Mat: Modified Independent, Supervision Sit to Stand: Modified Independent, Supervision Comment: no device - Ambulation Level of Assistance: Modified Independent, Supervision Distance (ft.): 200 - Stair Negotiation Stairs: Level of Assistance: Modified Independent, Supervision Stairs: Assistive Devices: Right Handrail - Standing Balance Static Stand: Supervision Dynamic Stand: Supervision, Contact Guard Assist - Pain Pain (assessed during therapy session): 3 Management Techniques: Position Change, Distraction, Relaxation Techniques, Exercise, Inactivity Comment: c/o pain 3/10 in R knee and r lateral neck - Insight/Carryover Insight/Carryover: Fair - Patient/Family Education Comment: safety, therapy schedule, therapy goals, mobility, POC, importance on use of call king, dual task, brain injury recovery - Assessment/Plan Assessment: Mr. Obrien continues to make good progress in therapy. Patient has impaired capacity to see deficits and is resistant to education to make changes for improved safety. Patient is progressing well towards mod I and benefits from reducing gait distances to reduce pain. PT focusing sessions on balance, mobility, strengthening of core musculature of hips and knee to reduce pain and safety. PT recommends continued skilled therapies to maximize safety and I with all mobility. PT recommends home discharge with intermittent supervision and home PT. - Goals Timeframe: 5 days Goals: -negotiate 2 flights of steps with mod I with single rail. -mod I to ambulate 250 feet on all surfaces without device. -I with all transfers without device. -I with all bed/mat mobility - Provider Therapist: Yenifer Rubio PT, DPT License Number: [id number] Occupational Therapy - Arousal/Attention/Orientation Patient Orientation: Person, Place, Time, Appropriate to Age, Appropriate to Situation - ADL/IADL Self Feeding: Set-up Help Grooming: Set-up Help Bathing-Upper Extremity: Supervision Bathing-Lower Extremity: Supervision Dressing-Upper Extremity: Independent Dressing-Lower Extremity: Supervision Comment: addressed homemaking with pt;reccommending assist with heavy cleaning and IADLS such as grocery shopping - Sitting Balance Static Sitting: Independent without upper extremity support Dynamic Sitting: Reaches across midline, Reaches out of base of support, Reaches within base of support - Transfers Wheelchair to Bed Transfers: Supervision Toilet Transfers: Supervision Tub Transfers: Supervision Comment: w/o an AD - Wheelchair Management Level of Assistance: Not Applicable - Upper Extremity Status Right Upper Extremity Comment: ROM WFL, impaired shoulder strength, impaired fine motor coordination Left Upper Extremity Comment: ROM WFL, impaired shoulder strength, impaired fine motor coordination - Pain Pain (assessed during therapy session): 3 Alleviating Techniques: Position Change, Distraction, Relaxation Techniques, Exercise, Inactivity Comment: c/o pain 3/10 in R knee and r lateral neck - Insight/Carryover Insight/Carryover: Fair - Patient/Family Education Comment: safety, therapy schedule, therapy goals, mobility, POC, importance on use of call king, dual task, brain injury recovery - Assessment/Plan Assessment: Mr. Obrien continues to make good progress in therapy. Patient has impaired capacity to see deficits and is resistant to education to make changes for improved safety. Patient is progressing well towards mod I and benefits from reducing gait distances to reduce pain. PT focusing sessions on balance, mobility, strengthening of core musculature of hips and knee to reduce pain and safety. PT recommends continued skilled therapies to maximize safety and I with all mobility. PT recommends home discharge with intermittent supervision and home PT. - Goals Timeframe: 5 days Goals: -negotiate 2 flights of steps with mod I with single rail. -mod I to ambulate 250 feet on all surfaces without device. -I with all transfers without device. -I with all bed/mat mobility - Provider Therapist: Carla Swartz OTR/L License Number: [id number] Speech Therapy - Plan Assessment: Mr. Obrien continues to make good progress in therapy. Patient has impaired capacity to see deficits and is resistant to education to make changes for improved safety. Patient is progressing well towards mod I and benefits from reducing gait distances to reduce pain. PT focusing sessions on balance, mobility, strengthening of core musculature of hips and knee to reduce pain and safety. PT recommends continued skilled therapies to maximize safety and I with all mobility. PT recommends home discharge with intermittent supervision and home PT. Recreational Therapy - Participation Participation: Monitors His/Her Own Leisure Time - Attendance Attendance: Daily - Activities Leisure Activities: Television - Socialization Level of Socialization: Initiates/interacts freely with care givers and peer - Diversional Time Diversional Time: enjoys listening to music, watching television - Assessment Assessment/Plan: Mr. Obrien continues to make good progress in therapy. Patient has impaired capacity to see deficits and is resistant to education to make changes for improved safety. Patient is progressing well towards mod I and benefits from reducing gait distances to reduce pain. PT focusing sessions on balance, mobility, strengthening of core musculature of hips and knee to reduce pain and safety. PT recommends continued skilled therapies to maximize safety and I with all mobility. PT recommends home discharge with intermittent supervision and home PT. - Provider Therapist: Nishi Ybarra, GEOLOGY ASSOCIATE #[id number] Nutrition - Current Diet Current Diet/ Supplement/ Feedings: Moderate consistent CHO heart healthy diet - Appetite Percent Meal Consumed: 75-100% - Comments Comments: Safety - Assessment/Goals/Time Frame Assessment/Goals/Time Frame: Pt at moderate nutritional risk. goal:1. Pt will be able to describe 3 sources of high sodium foods. Follow-up due on 07/06/2017 - Provider Provider: Elizabeth Diaz RD Case Management - Psychosocial Assessment Support Systems: Jamal (son). Michaelle (daughter) - Discharge Plan Discharge Plan: Home with services - Provider Provider: KhEDUARD Meade, WOMEN'S ACTIVITIES ADVISER License Number: [id number] Rehabilitation Plan - Treatment Plan Treatment Plan: Physical Therapy - Recommendation Recommendation: Physical Therapy, Occupational Therapy, Dietary - Discharge Plan Discharge to: Home (dc 19)
--- NOTE | 2017-07-06 13:27 | CP.PCM.PN ---
Subjective - Date & Time of Evaluation Date of Evaluation: 07/06/17 Time of Evaluation: 10:00 - Subjective Subjective: no acute complaints at present Objective - Vital Signs/Intake and Output Vital Signs (last 24 hours): Temp Pulse Resp BP Pulse Ox 97.6 F 73 20 116/66 98 07/06/17 10:00 07/06/17 10:00 07/06/17 10:00 07/06/17 10:00 07/06/17 10:00 - Medications Medications: Current Medications Albuterol (Ventolin Hfa 90 Mcg/Actuation (8 G)) 1 puff IH Q4H PRN PRN Reason: Wheezing Last Admin: 06/29/17 14:51 Dose: 1 puff Amlodipine Besylate (Norvasc) 10 mg PO DAILY [facility] Last Admin: 07/06/17 09:12 Dose: Not Given Aspirin (Aspirin Chewable) 81 mg PO DAILY [facility] Last Admin: 07/06/17 09:11 Dose: 81 mg Atorvastatin Calcium (Lipitor) 80 mg PO [facility] Last Admin: 07/05/17 21:11 Dose: 80 mg Famotidine (Pepcid) 20 mg PO BID [facility] Last Admin: 07/06/17 09:11 Dose: 20 mg Finasteride (Proscar) 5 mg PO [facility] Last Admin: 07/05/17 21:11 Dose: 5 mg Levofloxacin (Levaquin) 750 mg PO DAILY [facility] Last Admin: 07/06/17 09:11 Dose: 750 mg Fluticasone/Salmeterol (Advair Diskus 250/50) 1 puff IH Q12H [facility] Last Admin: 07/06/17 09:11 Dose: 1 puff Tamsulosin HCl (Flomax) 0.4 mg PO [facility] Last Admin: 07/05/17 21:11 Dose: 0.4 mg - Labs Labs: 06/29/17 05:20 06/29/17 05:20 - Head Exam Head Exam: ATRAUMATIC, NORMAL INSPECTION, NORMOCEPHALIC - Eye Exam Eye Exam: EOMI, Normal appearance, PERRL Pupil Exam: NORMAL ACCOMODATION - ENT Exam ENT Exam: Mucous Membranes Moist, Normal Exam - Neck Exam Neck Exam: Normal Inspection - Respiratory Exam Respiratory Exam: NORMAL BREATHING PATTERN - Cardiovascular Exam Cardiovascular Exam: REGULAR RHYTHM - GI/Abdominal Exam GI & Abdominal Exam: Soft, Normal Bowel Sounds - Rectal Exam Rectal Exam: NORMAL INSPECTION - Exam External exam: NORMAL EXTERNAL EXAM - Extremities Exam Extremities Exam: Full ROM, Normal Capillary Refill, Normal Inspection - Back Exam Back Exam: NORMAL INSPECTION - Neurological Exam Neurological Exam: Alert, Awake Neuro motor strength exam: Left Upper Extremity: 3, Right Upper Extremity: 3, Left Lower Extremity: 3, Right Lower Extremity: 3 - Psychiatric Exam Psychiatric exam: Normal Affect, Normal Mood - Skin Skin Exam: Dry, Intact Assessment and Plan (1) Encephalopathy Assessment & Plan: plan for pt, ot therapy team conference follow up with opthalomilogy after Dc Status: Acute
[2017-07-07] MEDS: Fluticasone-Salmeterol 250-50mcg Diskus IH SCH ×2 (08:30→21:14)
--- NOTE | 2017-07-07 10:19 | CP.PCM.PN ---
Subjective - Date & Time of Evaluation Date of Evaluation: 07/07/17 Time of Evaluation: 10:16 - Subjective Subjective: Mr. Obrien was seen and examined at the bedside. He is alert, oriented in all spheres. He denies any headache, dizziness, lightheadedness, nausea, or vomiting. He states of non-productive cough and was given any treatment. He denies any SOB or chest pain. He is able to follow simple commands. There was no untoward events overnight. Objective - Vital Signs/Intake and Output Vital Signs (last 24 hours): Temp Pulse Resp BP Pulse Ox 98.5 F 74 20 100/62 99 07/07/17 09:15 07/07/17 09:15 07/07/17 09:15 07/07/17 09:15 07/07/17 09:15 - Medications Medications: Current Medications Albuterol (Ventolin Hfa 90 Mcg/Actuation (8 G)) 1 puff IH Q4H PRN PRN Reason: Wheezing Last Admin: 06/29/17 14:51 Dose: 1 puff Amlodipine Besylate (Norvasc) 10 mg PO DAILY [facility] Last Admin: 07/07/17 08:31 Dose: Not Given Aspirin (Aspirin Chewable) 81 mg PO DAILY [facility] Last Admin: 07/07/17 08:31 Dose: 81 mg Atorvastatin Calcium (Lipitor) 80 mg PO [facility] Last Admin: 07/06/17 21:17 Dose: 80 mg Famotidine (Pepcid) 20 mg PO BID [facility] Last Admin: 07/07/17 08:32 Dose: 20 mg Finasteride (Proscar) 5 mg PO [facility] Last Admin: 07/06/17 21:17 Dose: 5 mg Fluticasone/Salmeterol (Advair Diskus 250/50) 1 puff IH Q12H [facility] Last Admin: 07/07/17 08:30 Dose: 1 puff Tamsulosin HCl (Flomax) 0.4 mg PO [facility] Last Admin: 07/06/17 21:17 Dose: 0.4 mg - Labs Labs: 06/29/17 05:20 06/29/17 05:20 - Constitutional Appears: No Acute Distress - Head Exam Head Exam: NORMAL INSPECTION - Neurological Exam Neurological Exam: Alert, Awake, Oriented x3 Neuro motor strength exam: Left Upper Extremity: 5, Right Upper Extremity: 5, Left Lower Extremity: 5, Right Lower Extremity: 5 Additional comments: Neurological unchanged from previous examination. Assessment and Plan (1) Encephalopathy Assessment & Plan: Case discussed with Dr. Ernst, continue all current medical, physical, and occupational therapies. There is no new recommendation from neurology. Status: Acute
[2017-07-08 08:05] VITALS: BP 135/77; PULSE 65; RESP 18; TEMP 98.1; O2SAT 97
[2017-07-08] MEDS: Fluticasone-Salmeterol 250-50mcg Diskus IH SCH (08:33)
--- NOTE | 2017-07-08 11:50 | CP.PCM.PN ---
Subjective - Date & Time of Evaluation Date of Evaluation: 07/08/17 Time of Evaluation: 11:49 - Subjective Subjective: Mr. Obrien was seen and examined at the bedside. He is alert, oriented in all spheres. He denies any headache, dizziness, weakness, nausea, or vomiting. He states that he is going home today. He also claims that he still has the non- productive cough and receiving treatments for it. He still remember that he needs to see an opthalmology upon discharge. There was no untoward events overnight. Objective - Vital Signs/Intake and Output Vital Signs (last 24 hours): Temp Pulse Resp BP Pulse Ox 98.1 F 65 18 135/77 97 07/08/17 08:05 07/08/17 08:34 07/08/17 08:05 07/08/17 08:34 07/08/17 08:05 - Medications Medications: Current Medications Albuterol (Ventolin Hfa 90 Mcg/Actuation (8 G)) 1 puff IH Q4H PRN PRN Reason: Wheezing Last Admin: 06/29/17 14:51 Dose: 1 puff Amlodipine Besylate (Norvasc) 10 mg PO DAILY [facility] Last Admin: 07/08/17 08:34 Dose: 10 mg Aspirin (Aspirin Chewable) 81 mg PO DAILY [facility] Last Admin: 07/08/17 08:33 Dose: 81 mg Atorvastatin Calcium (Lipitor) 80 mg PO [facility] Last Admin: 07/07/17 21:14 Dose: 80 mg Famotidine (Pepcid) 20 mg PO BID [facility] Last Admin: 07/08/17 08:34 Dose: 20 mg Finasteride (Proscar) 5 mg PO [facility] Last Admin: 07/07/17 21:14 Dose: 5 mg Fluticasone/Salmeterol (Advair Diskus 250/50) 1 puff IH Q12H [facility] Last Admin: 07/08/17 08:33 Dose: 1 puff Tamsulosin HCl (Flomax) 0.4 mg PO [facility] Last Admin: 07/07/17 21:14 Dose: 0.4 mg - Labs Labs: 06/29/17 05:20 06/29/17 05:20 - Constitutional Appears: No Acute Distress - Head Exam Head Exam: NORMAL INSPECTION - Neurological Exam Neurological Exam: Alert, Awake Neuro motor strength exam: Left Upper Extremity: 5, Right Upper Extremity: 5, Left Lower Extremity: 5, Right Lower Extremity: 5 Additional comments: Neurological unchanged form previous examination. Assessment and Plan (1) Encephalopathy Assessment & Plan: Case discussed with Dr. Ernst, continue all current medicall regimen. Recommend to see an opthalmology upon discahrge to evaluate his left vision. He is clear for discharge home from neurology perspective. Status: Acute
--- NOTE | 2017-07-08 13:34 | CP.PCM.PN ---
Subjective - Date & Time of Evaluation Date of Evaluation: 07/08/17 Time of Evaluation: 12:30 - Subjective Subjective: no acute complaints at present Objective - Vital Signs/Intake and Output Vital Signs (last 24 hours): Temp Pulse Resp BP Pulse Ox 98.1 F 65 18 135/77 97 07/08/17 08:05 07/08/17 08:34 07/08/17 08:05 07/08/17 08:34 07/08/17 08:05 - Medications Medications: Current Medications Albuterol (Ventolin Hfa 90 Mcg/Actuation (8 G)) 1 puff IH Q4H PRN PRN Reason: Wheezing Last Admin: 06/29/17 14:51 Dose: 1 puff Amlodipine Besylate (Norvasc) 10 mg PO DAILY [facility] Last Admin: 07/08/17 08:34 Dose: 10 mg Aspirin (Aspirin Chewable) 81 mg PO DAILY [facility] Last Admin: 07/08/17 08:33 Dose: 81 mg Atorvastatin Calcium (Lipitor) 80 mg PO [facility] Last Admin: 07/07/17 21:14 Dose: 80 mg Famotidine (Pepcid) 20 mg PO BID [facility] Last Admin: 07/08/17 08:34 Dose: 20 mg Finasteride (Proscar) 5 mg PO HS [facility] Last Admin: 07/07/17 21:14 Dose: 5 mg Fluticasone/Salmeterol (Advair Diskus 250/50) 1 puff IH Q12H [facility] Last Admin: 07/08/17 08:33 Dose: 1 puff Tamsulosin HCl (Flomax) 0.4 mg PO [facility] Last Admin: 07/07/17 21:14 Dose: 0.4 mg - Labs Labs: 06/29/17 05:20 06/29/17 05:20 - Head Exam Head Exam: ATRAUMATIC, NORMAL INSPECTION, NORMOCEPHALIC - Eye Exam Eye Exam: EOMI, Normal appearance, PERRL Pupil Exam: NORMAL ACCOMODATION - ENT Exam ENT Exam: Mucous Membranes Moist, Normal Exam - Neck Exam Neck Exam: Full ROM, Normal Inspection - Respiratory Exam Respiratory Exam: NORMAL BREATHING PATTERN - Cardiovascular Exam Cardiovascular Exam: REGULAR RHYTHM - GI/Abdominal Exam GI & Abdominal Exam: Soft, Normal Bowel Sounds - Rectal Exam Rectal Exam: NORMAL INSPECTION - Exam External exam: NORMAL EXTERNAL EXAM - Extremities Exam Extremities Exam: Full ROM, Normal Capillary Refill, Normal Inspection - Back Exam Back Exam: NORMAL INSPECTION - Neurological Exam Neurological Exam: Alert, Awake Neuro motor strength exam: Left Upper Extremity: 3, Right Upper Extremity: 3, Left Lower Extremity: 3, Right Lower Extremity: 3 - Psychiatric Exam Psychiatric exam: Normal Affect, Normal Mood - Skin Skin Exam: Intact Assessment and Plan (1) Encephalopathy Assessment & Plan: plan for Dc home status post Pt, Ot therapy Status: Acute
--- NOTE | 2017-07-10 15:03 | DS ---
REASON FOR ADMISSION: This is a 81-year-old -[place] male who was admitted to acute rehabilitation floor at [facility] after discharge from [facility]. COURSE OF HOSPITALIZATION: The patient was admitted to acute rehab and he was started on both physical therapy and occupational therapy. Patient's medications were continued. Patient was admitted to [facility] for change of mental status, delirium and urinary tract infection. Patient had also syncope prior to the acute admission. Patient was managed and discharged to acute rehabilitation to [facility] where he showed remarkable improvement. Patient was continued on antibiotics. Patient showed remarkable improvement and there was no further episodes of syncope or change of mental status. Patient was discharged home to follow up with his primary care physician, Dr. Mckeon on current medications. FINAL DIAGNOSES: Hypertension, type 2 diabetes mellitus, benign prostatic hypertrophy, history of chronic obstructive pulmonary disease. Yennifer Swan MD
== END 2017-07-08 14:30 | disposition home health service (06) | DRG 72 ==
PROVIDERS: ADMIT Internal Medicine; ATTEND Internal Medicine
PROC: F07Z9ZZ Gait Training/Functional Ambulation Treatment (ICD-10-PCS; principal; 2017-06-28)
PROC: F07L6ZZ Therapeutic Exercise Treatment of Musculoskeletal System - Lower Back / Lower Extremity (ICD-10-PCS; 2017-06-28)
PROC: F07K6ZZ Therapeutic Exercise Treatment of Musculoskeletal System - Upper Back / Upper Extremity (ICD-10-PCS; 2017-06-28)
PROC: F08Z1FZ Dressing Techniques Treatment using Assistive, Adaptive, Supportive or Protective Equipment (ICD-10-PCS; 2017-06-28)
PROC: F07Z5ZZ Bed Mobility Treatment (ICD-10-PCS; 2017-06-28)
PROC: F07Z9FZ Gait Training/Functional Ambulation Treatment using Assistive, Adaptive, Supportive or Protective Equipment (ICD-10-PCS; 2017-06-28)
DX: G93.41 Metabolic encephalopathy (principal); J44.9 Chronic obstructive pulmonary disease, unspecified; E11.9 Type 2 diabetes mellitus without complications; H53.462 Homonymous bilateral field defects, left side; Z88.0 Allergy status to penicillin; I10 Essential (primary) hypertension; N40.0 Benign prostatic hyperplasia without lower urinary tract symptoms; E78.5 Hyperlipidemia, unspecified; L60.3 Nail dystrophy; R53.1 Weakness